=== PATIENT | male | born 1945 | race Caucasian/White ===

== ENCOUNTER 2016-09-03 12:37 | Inpatient (IN) ==
[2016-09-03] MEDS ORDERED: ZOFRAN ODT ONE (13:04)
[2016-09-03] MEDS ORDERED: ZOFRAN ODT PO ONE (13:07)
[2016-09-03] MEDS ORDERED: MORPHINE IV ONE (15:14)
[2016-09-03] MEDS ORDERED: NS 1,000 ML IV ONE ×2 (15:14→16:58)
[2016-09-03] MEDS ORDERED: ZOFRAN IV ONE (15:15)
[2016-09-03 15:44] LABS: BASO% 0.1 % (0.0-0.8); HEMATOCRIT 48.2 % (42.0-52.0); HEMOGLOBIN 16.4 g/dL (14.0-18.0); IMM GRAN# 0.03 X1000 (0.0-0.04); IMM GRAN% 0.2 % (0.0-0.5); LYMPH# 0.41 X1000 (1.2-3.4); LYMPH% 2.7 % (20.5-51.1); MANUAL DIFF NEEDED? YES; MCV 76.4 FL (81-99); MONO# 1.12 X1000 (0.11-0.59); MONO% 7.5 % (1.7-9.3); MPV 11.1 FL (7.4-10.4); NEUT% 89.5 % (42.2-75.2); PLT 235 X1000 (130-400); RBC 6.31 XMIL (4.7-6.1)
[2016-09-03 15:54] LABS: AGAP 14; ALBUMIN 4.6 g/dL (3.5-5.0); ALKALINE PHOSPHATASE 74 U/L (32-122); BUN 25 mg/dL (8-22); CALCIUM 9.6 mg/dL (8.8-10.2); CHLORIDE 94 mmol/L (98-107); COSMO 275; GOT 20 U/L (10-34); GPT 15 U/L (10-44); LIPASE 48 U/L (13-60); POTASSIUM 4.6 mmol/L (3.5-5.1); SODIUM 133 mmol/L (136-145); TCO2 25 mmol/L (25-35); TOTAL PROTEIN 7.2 g/dL (6.3-8.3)
[2016-09-03 16:18] LABS: LYMPHS 3 % (21-51); MONO 6 % (1-9)
--- NOTE | 2016-09-03 16:47 | PROVIDER DOCUMENTATION ---
This chart was entered by Xenia Couch Scribe, acting as scribe for Elton Schwartz PA. HPI-Abdominal Pain/GI Problem - General Chief Complaint: Nausea/Vomiting Stated Complaint: VOMITING Time Seen by Provider: 09/03/16 15:06 Source: patient Allergies/Adverse Reactions: Patient Allergies Allergy/AdvReac Type Severity Reaction Status Date / Time phenergan AdvReac Unknown Uncoded 04/20/15 22:09 Home Medications: Home Medication List Medication Instructions Recorded Confirmed Last Taken Type Clonazepam 5 mg PO HS 03/25/13 04/20/15 04/19/15 History Polyethylene Glycol 3350 [Miralax] 12 gm PO DAILY 03/25/13 04/20/15 04/19/15 History Ondansetron Odt [Zofran Odt] 4 mg PO Q6H PRN PRN 04/20/15 04/20/15 04/20/15 History Ciprofloxacin HCl [Cipro] 500 mg PO BID #14 tablet 04/23/15 Unknown Rx Metronidazole [Flagyl] 500 mg PO TID #21 tablet 04/23/15 Unknown Rx - History of Present Illness-ABD Nature of Presenting Problems: 71 yo M presents to the ER with complaint of sudden, severe abdominal pain onset last night. States a couple years ago he had an SBO and this feels similar. Pt states he has had multiple n/v episodes since, one small episode of diarrhea. Abdominal Pain Onset Location: reports: generalized abdomen Pain Radiation: reports: no radiation Onset/Duration: reports: last night Associated Symptoms: reports: diarrhea, nausea, vomiting Review of Systems - Adult - REVIEW OF SYSTEMS - ADULT Constitutional: denies: chills, fever Eyes: reports: no symptoms reported Ears, Nose, Mouth & Throat: reports: no symptoms reported Cardiovascular: denies: chest pain, palpitations Respiratory: denies: cough, shortness of breath Gastrointestinal: reports: abdominal pain, diarrhea, nausea, vomiting Genitourinary: reports: no symptoms reported Musculoskeletal: reports: no symptoms reported Integumentary: reports: no symptoms reported Neurological: reports: no symptoms reported Psychiatric: reports: no symptoms reported Endocrine: reports: no symptoms reported Hematologic/Lymphatic: reports: no symptoms reported Allergic/Immunologic: reports: no symptoms reported All Other Systems: Reviewed and Negative Past History - Adult - PAST MEDICAL HISTORY-ADULT Review of Records: reports: Nursing Assessment Review, Medications Reviewed Gastrointestinal: reports: denies history - IMMUNIZATION STATUS Childhood Immunizations: See Nurse Assessment Flu Vaccine: See Nurse Assessment Physical Exam-General - PHYSICAL EXAM-ADULT Initial Vital Signs Reviewed: Yes - CONSTITUTIONAL General Appearance: alert, no apparent distress - EYES Eyes: PERRL/EOMI, pink conjunctivae - HEAD, EARS, NOSE, MOUTH & THROAT HENMT: normocephalic/atraumatic, normal ENT inspection - NECK Neck: supple, normal inspection - RESPIRATORY Respiratory: no respiratory distress, no accessory muscle use - CARDIOVASCULAR Cardiovascular: normal peripheral pulses, regular rate, rhythm - GASTROINTESTINAL (ABDOMEN) Abdominal Exam: abnormal bowel sounds (hypoactive), tenderness (mild, generalized) - MUSCULOSKELETAL Back Exam: no CVA tenderness, no vertebral tenderness Extremity: normal gait, normal inspection - SKIN Integumentary: normal color, warm/dry - NEUROLOGIC Neurologic: grossly normal, no motor/sensory deficits - PSYCHIATRIC Psych/Mental Status: normal mood/affect, normal thought content, normal thought process, oriented x 3 Progress - PLAN OF CARE/RESULTS Progress/Plan/Lab Results: Vital Signs - 8 hr 09/03/16 12:59 09/03/16 15:00 Temperature 97.6 F Pulse Rate 106 H Pulse Rate [Sitting] 96 H Pulse Rate [Standing] 111 H Pulse Rate [Supine] 90 Respiratory Rate 20 Blood Pressure 123/81 Blood Pressure [Sitting] 110/79 Blood Pressure [Standing] 102/70 Blood Pressure [Supine] 118/78 O2 Sat by Pulse Oximetry 98 Orders Category Date Time Status CBC WITH DIFF [HEME] Stat Lab 09/03/16 15:06 Ordered COMPREHENSIVE METABOLIC PANEL [CHEM] Stat Lab 09/03/16 15:06 Ordered LIPASE [CHEM] Stat Lab 09/03/16 15:06 Ordered urinalysis [URINALYSIS PL W/POSS RFLX CULT] [URINALYSIS Lab 09/03/16 15:06 Uncollected ] Stat Ondansetron Odt [Zofran Odt] Med 09/03/16 13:04 Discontinued 4 mg .ROUTE .STK-MED ONE Ondansetron Odt [Zofran Odt] Med 09/03/16 13:07 Discontinued 4 mg PO NOW ONE Result Diagrams: 09/03/16 15:22 09/03/16 15:22 - XRAY 1 XRAY Study: Abdomen Impression: Abnormal (+SBO, per radiologist) - CONSULTS/PCP/HOSPITALIST Notification #1 *Consult/PCP/Hospitalist*: Dr. Arellano Time Discussed: 16:47 Consult Disposition: Admit Departure - Departure Time of Disposition Decision: 16:47 DIAGNOSIS: Small bowel obstruction Disposition: ADMITTED INPATIENT 09 Certified Medical Emergency: Emergent Condition: Stable Referrals and Follow-Ups: Anup Craven MD [Primary Care Provider] - Attestation - Physician/ SEVERINO Attestation Patient care was provided by Advanced Practice Provider:: Yes Advanced Practice Provider:: Elton Schwartz Advanced Practice Provider documentation review:: The Mid-level provider documentation, treatment plan and medical decision making was reviewed by the physician who agrees with all treatment and medical decision making by the MLP. This chart was documented by the indicated scribe, (Xenia Couch Scribe) and accurately reflects the services I performed and decisions made by Efren harper Steven Wesley, PA, as attested by the provider's signature.
--- NOTE | 2016-09-03 16:57 | Diag Imaging Result Document ---
PROCEDURE NAME: ABDOMEN FLAT/UPRIGHT - 09/03/2016 ABDOMEN 2 VIEWS: COMPARISON: 04/23/2015. FINDINGS: There are a couple of abnormally gas dilated loops of small bowel in the mid abdomen. These measure up to 4.4 cm. No colonic gas. No free air. IMPRESSION: Abnormally dilated small bowel gas loops concerning for small-bowel obstruction.
[2016-09-03] MEDS ORDERED: MORPHINE IV PRN (16:58)
[2016-09-03] MEDS ORDERED: ZOFRAN IV PRN (16:58)
--- NOTE | 2016-09-03 18:58 | HISTORY AND PHYSICAL ---
CHIEF COMPLAINT: Nausea, vomiting. HISTORY OF PRESENT ILLNESS: Patient is a 71-year-old patient of Dr. Anup Craven'siria. He presented to the emergency department today noting that he has had a 2-day history of nausea, vomiting, and abdominal pain. States he had similar symptoms back in 2007 and had to have emergent surgery by Dr. Costa. He states that this did not go away overnight, so he presented emergency department. He denies any hematemesis, hematochezia, denies any melena. He does have abdominal pain. His notes that his abdomen was much more swollen early this morning before coming to the ER than it currently is now. States he has had multiple episodes of nauseam vomiting and he has not eaten or drank anything since last night because of this. ALLERGIES: Phenergan. MEDICATIONS: Klonopin 0.5 mg at bedtime. MiraLAX p.r.n. Zofran p.r.n. PAST MEDICAL HISTORY: Small-bowel obstruction requiring surgical intervention in 2007. Otherwise, he has no medical history. REVIEW OF SYSTEMS: As noted above. Positive nausea, vomiting, frequent abdominal pain for the past 2 days with swelling of his abdomen. He has had no bowel movement and passed no gas in the past 48 hours. Denies any dysuria, urinary frequency, urgency. Denies any hesitancy, polyuria or polydipsia. Denies any skin rashes, weight loss, or weight gain. FAMILY HISTORY: Noncontributory. SOCIAL HISTORY: Patient lives at home. He is . He does not smoke or drink. Dr. Anup Craven is his primary care physician. PHYSICAL EXAMINATION: VITAL SIGNS: Reviewed and stable. Temperature 97 degrees, pulse 106, blood pressure 123/81. Saturation 98% on room air. GENERAL: Patient well developed, well nourished. He is currently in no respiratory distress. He is awake, alert, pleasant to talk with. Speech is regular. Memory is intact. HEENT: Normocephalic, atraumatic. VIKAS. NECK: Supple. CARDIOVASCULAR: Regular rate. CHEST: Relatively clear. ABDOMEN: Soft, mildly distended. Diffusely tender throughout. No masses. No active bowel sounds appreciable. EXTREMITIES: Moves all extremities. NEUROLOGIC: No focal changes. SKIN: Warm and dry. No rashes. LABORATORY: Reviewed. CT shows small bowel obstruction. WBCs 14, hemoglobin and hematocrit 16 and 42. Sodium 133, glucose 169. ASSESSMENT: 1. Small bowel obstruction. 2. Leukocytosis, secondary small-bowel obstruction. 3. Mild hyperglycemia in a patient with no known history of diabetes. 4. Hyponatremia. 5. Nausea and vomiting secondary to small bowel obstruction. PLAN: Given patient's previous history of needing emergent surgical intervention from his small bowel obstruction, do feel as though it is best that he be transferred to [facility] and have Surgery evaluate and treat as necessary. We will keep him nothing per oral. We will place a nasogastric tube. Further orders as needed. cc: Danny Bueno MD
--- NOTE | 2016-09-03 22:18 | CONSULTATION ---
DATE OF CONSULTATION: 09/03/2016 HISTORY OF PRESENT ILLNESS: This is a 71-year-old male with a significant surgical history for colon resection 2007 for blockage that was emergent by Dr. Costa. In the interim he has had another admission for bowel obstruction that relieved nonoperatively back in 2014. He presents now with nausea, vomiting and lack of flatus since 4 a.m. this morning. Did have a small bowel movement he states. No real abdominal pain but he continued to vomit prompting presentation emergency department [place], he was worked up, plain film abdominal x-ray shows some dilated loops of small bowel stomach consistent with a small bowel obstruction. He has been transferred to [facility] and NG tube is in the process of being placed and CT scans in process being obtained. Denies any abdominal pain, was in his usual state of health prior to early this morning. Nothing unusual, no high roughage meals. Had a colonoscopy in 2014 he states was normal and he has these regularly. There was some question of a mass in the colon on his previous admission but apparently colonoscopy did not bear this out since that admission. PAST MEDICAL HISTORY: history of bowel obstruction. PAST SURGICAL HISTORY: 1. Colon resection. 2. Hemorrhoidectomy. 3. Shoulder surgery. 4. Left knee surgery. SOCIAL HISTORY: Denies tobacco, alcohol, or drugs. REVIEW OF SYSTEMS: Ten point negative what mentioned in the HPI. MEDICATION: Takes Klonopin, MiraLAX. FAMILY HISTORY: Negative for cancer. PHYSICAL EXAMINATION: Vital Signs: Temperature is 98.0 degrees, pulse 77, blood pressure 145/75, oxygen saturation 96% on room air. General: He is alert, in no acute distress. HEENT: No scleral icterus. There is no cervical lymphadenopathy. Abdomen: Soft, mildly distended, nontender and a midline scar without any incisional hernias or inguinal hernia noted. Integument: Otherwise warm, dry without jaundice. Extremities: No lower extremity edema. His extremities were well perfused. Musculoskeletal: no muscle wasting or deformity. Neuro: flat affect but oriented x3. Cardiovascular. normal rate and rhythm LABS: White count is elevated at 14.9 but his hematocrit is elevated also 48 consistent with hemoconcentration, platelets 235,000. Sodium is 133, potassium 4.6, chloride 94 , CO2 25, BUN is 25, creatinine is 1.1, glucose 169. LFTs are normal. Lipase is normal. Plain film x-ray of the abdomen showed some dilated loops with air-fluid levels and a dilated stomach but no colonic gas. ASSESSMENT/PLAN: 71-year-old male with history of bowel obstructions in the past and abdominal operations presents now with symptoms and plain film imaging consistent with a bowel obstruction. Exam is very benign. He looks quite dehydrated. He has got an IV and will start IV resuscitation, place an NG tube, treat him nonoperatively and will obtain a CT scan with p.o. contrast per the NG tube and IV contrast. We discussed the course of management with him and he understands and will follow CT scan and plan for further recommendations after this. Will continue to follow along, serial exams, serial labs. cc: Naila Craven MD MTDD
[2016-09-03] MEDS: LR 1,000 ML IV SCH (23:45)
--- NOTE | 2016-09-04 | Diag Imaging Result Document ---
PROCEDURE NAME: ABDOMEN/PELVIS W/CONTRAST - 09/03/2016 CT ABDOMEN AND PELVIS WITH ORAL AND INTRAVENOUS CONTRAST: TECHNIQUE: Dose reduction protocol. COMPARISON: 04/20/2015. FINDINGS: There is a nasogastric tube which enters the stomach. The stomach is distended with oral contrast. Normal spleen, pancreas, and adrenal glands. The gallbladder has been removed. There are several scattered hypodense hepatic lesions consistent with cysts. The largest measures 2.2 cm. There is also mild fatty infiltration of the liver. There is a 1.6 cm left renal cyst. No hydronephrosis. Normal aorta. There are multiple distended small bowel loops. The distal ileum is not distended. There is mild wall thickening. Normal appendix. No abscess. There are multiple scattered colonic diverticula. The urinary bladder is distended and appears normal. The prostate is enlarged measuring just over 6 cm in transverse diameter. There is a fat-filled right inguinal hernia. No free air. IMPRESSION: 1. Distal small bowel obstruction. 2. Cholecystectomy. 3. Scattered hepatic and renal cysts. 4. Fatty infiltrate of the liver. 5. Prominent prostate.
[2016-09-04] MEDS: LR 1,000 ML IV SCH ×4 (07:46→18:05)
[2016-09-04 09:03] LABS: MANUAL DIFF NEEDED? NO
[2016-09-04 09:05] LABS: BASO% 0.2 % (0.0-0.8); EOS# 0.02 X1000 (0.0-0.7); EOS% 0.2 % (0.0-10.0); HEMATOCRIT 44.6 % (42.0-52.0); HEMOGLOBIN 15.2 g/dL (14.0-18.0); IMM GRAN# 0.04 X1000 (0.0-0.04); IMM GRAN% 0.3 % (0.0-0.5); LYMPH% 11.3 % (20.5-51.1); MCH 26.5 PG (27-31); MCHC 34.1 g/dL (33-37); MCV 77.7 FL (81-99); MONO# 1.65 X1000 (0.11-0.59); MONO% 12.4 % (1.7-9.3); MPV 11.4 FL (7.4-10.4); NEUT% 75.6 % (42.2-75.2); PLT 233 X1000 (130-400); RBC 5.74 XMIL (4.7-6.1)
[2016-09-04 09:21] LABS: BUN 20 mg/dL (8-22); CALCIUM 8.5 mg/dL (8.8-10.2); TCO2 26 mmol/L (25-35)
[2016-09-04 09:27] LABS: CHLORIDE 100 mmol/L (98-107); POTASSIUM 4.4 mmol/L (3.5-5.1); SODIUM 137 mmol/L (136-145)
--- NOTE | 2016-09-04 10:33 | PROGRESS NOTE ---
DATE: 09/04/2016 SUBJECTIVE: Mr. Preston was admitted last night with a small-bowel obstruction. Has an NG tube in place. He came in with nausea and vomiting that got pretty bad. He vomited for almost a solid 24 hours in his words. This is a 71-year-old patient of Dr. Anup Craven. He presented to the emergency department. Noted he had a 2-day history of nausea, vomiting, and abdominal pain. Had similar symptoms back in 2007, had to have emergent surgery per Stephani Hyatt. States that it did not go away overnight and presented to the emergency department. He denies any hematemesis or hematochezia. Denies any melena. He does have abdominal pain. LABORATORY DATA: CT showed small bowel obstruction. White blood cell count was 14, hematocrit was 42, with a hemoglobin of 16. Sodium 133. PHYSICAL EXAMINATION: General: He appears a little more comfortable this morning. Not had any bowel activity, not passing any gas, and does not feel any mumbling. Vital Signs: Temperature 98.5 degrees, pulse 72, respirations 12, blood pressure 142/72. HEENT: Pupils are equal and round. CVP less than 6 cm. Lungs: Clear in all lung gee. Cardiovascular Examination: Regular rhythm and rate without murmur or S3. Is and Os: Urine output was 1800 mL. DIAGNOSTIC DATA: White blood cell count 13,270, hematocrit 44, platelet count 233,000. Sodium 133, potassium 4.6, chloride 94, bicarb 25, BUN 25, creatinine 1.1, and albumin 4.6. ASSESSMENT AND PLAN: 1. A 71-year-old male with a history of a small-bowel obstruction in the past, abdominal operations in the past, presents with symptoms consistent with a small-bowel obstruction. Continue nasogastric suction, try and increase activity. I gave him intravenous fluids. We will follow with CT scan and try and treat conservatively. 2. Status post colon resection. 3. Hemorrhoidectomy in the past. 4. He has had a history of shoulder surgery and left knee surgery in the past. This is, in brief history, a 71-year-old with a significant history of colon resection in 2007 for blockage, emergent surgery by Dr. Costa. In the interim, he has had another admission for a bowel obstruction, I believe not operatively back in 2014. Presented at this time with symptoms of small-bowel obstruction. No real abdominal pain. A lot of vomiting. cc: Tello Ellis MD
[2016-09-04 11:07] LABS: AGAP 11; COSMO 277
--- NOTE | 2016-09-04 15:30 | PROGRESS NOTE ---
DATE: 09/04/2016 SUBJECTIVE: Feels okay. NG tube is in place. No flatus yet but no further nausea or vomiting. OBJECTIVE: Vital signs: No fevers. Pulse 72, blood pressure 142/72, oxygen saturation 95% on room air. General: He is alert. HEENT: NG tube is in place with some feculent in bilious appearing output. Abdomen: Soft, nontender, nondistended. LABS: Reviewed. White count is down to 13. Hematocrit is down to 44. Creatinine is 1.0. Glucose is 106. ASSESSMENT AND PLAN: This is a 71-year-old male with a bowel obstruction. He has had these before and have resolved nonoperatively. His exam is benign. His vital signs are okay. We will continue treatment with NG tube and IV fluids for now. He does look quite dehydrated still, although improving. Will continue to follow along. I have encouraged him to get out of bed, sit in the chair, and ambulate as much as possible, and to limit ice chips. cc: Naila Craven MD
[2016-09-04] MEDS: KLONOPIN PO SCH (21:46)
[2016-09-05] MEDS: LR 1,000 ML IV SCH ×6 (02:11→22:19)
--- NOTE | 2016-09-05 12:18 | PROGRESS NOTE ---
DATE: 09/05/2016 SUBJECTIVE: Mr. Preston says he passed a little bit of gas this morning. His abdomen feels a little softer, I think this does not appear distended, still has NG-tube to wall suction. OBJECTIVE: Vital signs: Temperature 98.4 degrees, pulse 62, respirations 18, blood pressure 134/76. HEENT: Pupils are equal and round. CVP less than 6 cm. Lungs: Clear in all lung gee. Cardiovascular exam: Regular rhythm and rate without murmur or S3. Abdomen: Soft. Skin: Warm and dry. : Urine output. Almost 4 L. LAB: Review from yesterday: Hematocrit stable at 44. Electrolytes look good. ASSESSMENT AND PLAN: A 71-year-old with small bowel obstruction and has had these symptoms before and resolved non operatively. Continue present regimen. NG tube. IV fluids. It appears to be still that he would benefit from fluid. I do not see any change. We can edit his orders. He does take Klonopin at 6 mg at bedtime, so will get morphine as needed for pain. cc: Tello Ellis MD
[2016-09-05] MEDS ORDERED: SODIUM CHLORIDE 0.9% 10 ML ONE (13:00)
[2016-09-05] MEDS: PROTONIX IV SCH (13:06)
--- NOTE | 2016-09-05 18:19 | PROGRESS NOTE ---
DATE: 09/05/2016 SUBJECTIVE: No pain. NG tube is in place. No nausea. No flatus. OBJECTIVE: Temperature is 98.4 degrees, no fevers overnight. Pulse 62, blood pressure 134/76. Oxygen saturation 97% on room air.General: He is alert, in no acute distress. HEENT: No scleral icterus. NG tube still has a bilious feculent tinge to it. Abdomen: Soft, nontender, nondistended. Integument: Otherwise warm and dry. LABS: I reviewed his labs. Nothing new this morning but white count down trending yesterday. ASSESSMENT AND PLAN: A 71-year-old male with a bowel obstruction. He has had several previous episodes in the past. Abdomen remains benign. No pain. We will continue to follow along. Keep the NG tube for now. Once he begins passing gas we will remove his NG tube and gradually advance his diet. cc: Naila Craven MD
[2016-09-05] MEDS: KLONOPIN PO SCH (20:40)
[2016-09-06] MEDS: PROTONIX IV SCH ×2 (01:45→12:28)
[2016-09-06] MEDS: SODIUM CHLORIDE 0.9% INJ SCH ×2 (01:45→12:28)
[2016-09-06] MEDS: LR 1,000 ML IV SCH ×3 (01:45→18:03)
--- NOTE | 2016-09-06 09:54 | PROGRESS NOTE ---
DATE: 09/06/2016 SUBJECTIVE: The patient feels a little better. He is passing some gas. Abdomen feels soft. I do hear some bowel sounds now. The NG tube is still in place. PHYSICAL EXAMINATION: Vital Signs: Temperature 98.6 degrees, pulse 68, respirations 16, blood pressure 118/62. Lungs: Are clear in all lung gee. Cardiovascular Examination: Regular rhythm and rate without murmur or S3. Abdomen: Soft. Skin: Is warm and dry. Is and Os: Good urine output, over 4 L. LABORATORY DATA: No new labs from this morning. ASSESSMENT AND PLAN: 1. Small-bowel obstruction, several previous episodes in the past. Abdomen remains benign. No pain. He seems to be passing more gas. Continue nasogastric tube under Dr. Craven's direction. I do not see anything different to try. Discontinue present intravenous fluids. 2. Review of his orders. He is getting Protonix 40 mg intravenous every 12. He gets lactate Ringer's at 125 mL an hour. Zofran as needed for nausea. He gets Klonopin 6 mg by mouth at bedtime. cc: Tello Ellis MD
--- NOTE | 2016-09-06 13:13 | PROGRESS NOTE ---
DATE: 09/06/2016 SUBJECTIVE: No flatus yet. NG tube still putting out brown output. No abdominal pain. OBJECTIVE: Vital Signs: Temperature 98.6 degrees, pulse 68, blood pressure 118/62. General: He is alert, in no acute distress. Not really sleeping well at night. Cardiovascular: Normal rate, regular rhythm. Abdomen: Soft, nontender, nondistended. LABORATORIES: Reviewed. Nothing new today. ASSESSMENT AND PLAN: A 71-year-old male with a bowel obstruction. He has had these in the past that have resolved nonoperatively. He has got NG tube in place that is still putting out quite a bit of brown, bilious, and feculent-appearing output. We will keep his tube in place. He is on DVT and PPI prophylaxis. We will check a BMP today to assure electrolytes are okay. Plan for an upper GI study tomorrow. If obstruction is not relieving, he may need exploration on Sunday. I discussed this with him and his . They understand. He will continue to ambulate as much as he can. cc: Naila Craven MD
[2016-09-06 13:35] LABS: AGAP 17; BUN 13 mg/dL (8-22); CALCIUM 7.8 mg/dL (8.8-10.2); CHLORIDE 100 mmol/L (98-107); COSMO 278; POTASSIUM 4.3 mmol/L (3.5-5.1); SODIUM 140 mmol/L (136-145); TCO2 23 mmol/L (25-35)
[2016-09-06] MEDS: KLONOPIN PO SCH (20:59)
[2016-09-07] MEDS: PROTONIX IV SCH ×2 (00:10→12:18)
[2016-09-07] MEDS: LR 1,000 ML IV SCH ×2 (00:10→06:29)
[2016-09-07] MEDS: SODIUM CHLORIDE 0.9% INJ SCH ×2 (00:10→12:18)
--- NOTE | 2016-09-07 09:02 | PROGRESS NOTE ---
DATE: 09/07/2016 SUBJECTIVE: No pain. No nausea, but no flatus. OBJECTIVE: Vitals: No fevers. Pulse 63, blood pressure 130/71, oxygen saturation 95% on room air. General: He is alert, in no acute distress. Abdomen: Soft, nontender, nondistended. Integument: Warm, dry. His NG tube is still putting out bilious, feculent-looking stuff and quite a bit each day. LABS: Nothing new today, but have been reviewed. ASSESSMENT AND PLAN: A 71-year-old male with a bowel obstruction. This is a recurring issue. He has had several abdominal operations in the past including colon resection. He has failed to open up after several days of NG tube decompression. Will get an upper GI study and plan for possible exploratory laparotomy tomorrow pending the results of this. cc: Naila Craven MD
--- NOTE | 2016-09-07 10:56 | Diag Imaging Result Document ---
PROCEDURE NAME: SMALL BOWEL SERIES ONLY - 09/07/2016 SMALL BOWEL SERIES: PROCEDURE: Total dose of 483.2 cGy/cm2. Fluoro time is 15 seconds. Eight total films submitted. Nasogastric tube was used to fill the stomach with contrast. Normal emptying from the stomach into the duodenum. Normal proximal jejunum. The mid to distal jejunum is distended. However, oral contrast passed easily through this with filling of the ileum. There is emptying into the small bowel by 60 minutes. Normal terminal ileum. No stricture. IMPRESSION: Dilated small bowel in the left lower quadrant, but no obstruction. [facility]
--- NOTE | 2016-09-07 12:47 | PROGRESS NOTE ---
DATE: 09/07/2016 SUBJECTIVE: Mr. Preston is feeling better. He actually had some bowel movement. He still has NG-tube in. He just went down for his GI study. OBJECTIVE: Afebrile, pulse 63, respirations 20, blood pressure 130/70. Urine output was well over 4 L. Reviewed his laboratory from 09/04/2016, chemistries from yesterday. He had a small- bowel x-ray done this morning. Dilated small bowel in the left lower quadrant, but no obstruction found. He did have some bowel movement. ASSESSMENT AND PLAN: Small-bowel obstruction. He has now had some bowel movement. He has had several days of NG decompression, so considering exploratory laparotomy. We will see what Dr. Craven wants to do. Continue present treatment. Right now, he is on Protonix 40 mg IV q.12, getting morphine for pain, getting lactated Ringer's at 125 mL an hour, and gets his Klonopin 6 mg p.o. at bedtime. cc: Tello Ellis MD
[2016-09-07] MEDS ORDERED: DULCOLAX PR ONE (13:55)
[2016-09-07] MEDS: KLONOPIN PO SCH (21:03)
[2016-09-08] MEDS: PROTONIX IV SCH (00:45)
[2016-09-08] MEDS: LR 1,000 ML IV SCH ×2 (00:45→05:43)
[2016-09-08 12:59] VITALS: BP 121/62
--- NOTE | 2016-09-08 13:03 | PROGRESS NOTE ---
DATE: 09/08/2016 SUBJECTIVE: He is doing well. He is up in the bathroom and in the shower this morning, brushing his teeth. No abdominal pain. He is passing gas and having bowel movements. He tolerated clear liquids yesterday. OBJECTIVE: Afebrile. Temperature is 97.9, pulse 61, blood pressure 111/61. ASSESSMENT AND PLAN: This is a 71-year-old male with a bowel obstruction that is resolved based off his upper gastrointestinal study yesterday. He has had multiple bowel movements and is tolerating a clear liquid diet. We will give him a soft diet today and plan for him to maybe go home later today or tomorrow as he tolerates. He can see me back in the next couple of weeks to follow up just to make sure he is doing well. Otherwise, he needs to see his primary doctor. cc: Naila Craven MD
--- NOTE | 2016-09-08 14:29 | DISCHARGE SUMMARY ---
ADMISSION DATE: 09/03/2016 DISCHARGE DATE: 09/08/2016 He is a patient, a 71-year-old patient of Dr. Anup Craven who presented to the emergency room noting he had 2-day history of nausea, vomiting ,abdominal pain, with similar symptoms back in 2007 when he had emergent surgery with Dr. Costa. States it did not go away overnight so he presented to the emergency room. Here he was treated conservatively. Denied any hematemesis, hematochezia or melena. Given IV fluids, NG tube and he showed slow resolution of symptoms. Started passing gas and then had a bowel movement. [place] he could he could go home on 09/08/2016. His bowel obstruction appears to have resolved based on his upper gastrointestinal study done the day on 09/07/2016. He has had multiple bowel episodes, tolerating a clear liquid diet. Given a soft diet today. May can go home, I suspect he will be able to go home later on this evening. DISCHARGE MEDICATIONS: He takes Klonopin 6 mg at bedtime, and he will continue that. Otherwise I do not think he has any other medications. Follow up with Dr. Anup Craven and Dr. Jin Craven. cc: Tello Ellis MD
== END 2016-09-08 15:09 | disposition home or self-care (01) ==
LOC: P.ED 12:37 → SUATTDRO 17:52 → 4N 17:52
PROVIDERS: ATTEND Emergency Medicine